=== PATIENT | male | born 1945 | race Caucasian/White ===

== ENCOUNTER → 2021-01-28 | Day surgery (SDC) | payer MEDICARE, OTHER ==
[~2021-01-28] VITALS: Ht 177.8 cm; Wt 88.5 kg
[~2021-01-28] MED LIST: ANTIVERT25 MG PO; HCTZ12.5 MG PO; HCTZ25 MG PO; INDERAL LA160 MG PO; INDERAL LA80 MG PO; LIPITOR 10MG TA10 MG PO; MOBIC7.5 MG PO; MYSOLINE50 MG PO; NORVASC5 MG PO; PRINIVIL20 MG PO; PROTONIX 40MG T40 MG PO; ZOFRAN4 MG PO
[2021-01-28 07:31] LABS: HCT 46.2 % (42.0-52.0); HGB 16.2 g/dl (13.2-18.0); MCH 32.8 pg (25.0-31.0); MCHC 35.1 g/dL (32.0-36.0); MCV 93.5 fL (78.0-100.0); MPV 9.4 fL (6.0-9.5); RBC 4.94 M/uL (4.70-6.00); RDW 12.6 % (11.5-14.0); WBC 4.5 K/uL (4.0-10.5)
[2021-01-28 07:52] LABS: ALBUMIN 3.7 g/dL (3.4-5.0); BILIRUBIN - TOTAL 0.7 mg/dL (0.2-1.0); BUN/CREAT RATIO (CALC) 26.3 RATIO; CREATININE 0.99 mg/dL (0.67-1.17); GLOBULIN (CALCULATION) 3.7 g/dL; POTASSIUM 3.4 mmol/L (3.5-5.1); TOTAL PROTEIN 7.4 g/dL (6.4-8.2)
== END | disposition home or self-care (01) ==
LOC: FAS 06:42
PROVIDERS: Surgery
DX: Z12.11 Encounter for screening for malignant neoplasm of colon (principal); Z12.12 Encounter for screening for malignant neoplasm of rectum; K57.30 Diverticulosis of large intestine without perforation or abscess without bleeding; Z86.010 Personal history of colon polyps; I44.0 Atrioventricular block, first degree; Z88.5 Allergy status to narcotic agent; Z96.642 Presence of left artificial hip joint; Z96.651 Presence of right artificial knee joint; I10 Essential (primary) hypertension; Z87.891 Personal history of nicotine dependence
CPT/HCPCS: 36415; 80053; J0690; J1610; J2250; J2704; J7120